=== PATIENT | female | born 1960 | race Caucasian/White ===

== ENCOUNTER 2022-01-31 14:00 | Emergency (ER) | payer BC ==
[2022-01-31 14:26] VITALS: BP 145/83; PULSE 97; RESP 16; TEMP 97.8; BMI 25.0
== END 2022-01-31 16:52 | disposition home or self-care (01) ==
LOC: FER 14:00
DX: M25.572 Pain in left ankle and joints of left foot (principal)
CPT/HCPCS: 73610-TC-LT-FY; 73630-TC-LT; 99284-25